=== PATIENT | male | born 1975 | race Caucasian/White ===

== ENCOUNTER 2018-07-30 17:21 | Inpatient (IN) | payer MEDICAID ==
[~2018-07-30] VITALS: Ht 170.2 cm; Wt 111.1 kg
[2018-07-30 18:06] LABS: BASOPHIL % 0.1 % (0-2); RED CELL DISTRIBUTION WIDTH 13.7 % (11.5-14.5)
[2018-07-30 18:14] LABS: CALCIUM 8.5 mg/dL (8.5-10.1); CARBON DIOXIDE 23.2 mmol/L (21-32); CHLORIDE SERUM 88 mmol/L (98-107); CREATININE SERUM 0.6 mg/dL (0.7-1.3); GFR1 > 60 mL/min; GLUCOSE SERUM 128 mg/dL (74-106); POTASSIUM SERUM 3.7 mmol/L (3.5-5.1); SODIUM SERUM 128 mmol/L (136-145)
[2018-07-30 18:20] LABS: ALBUMIN 3.9 g/dL (3.4-5.0); ALKALINE PHOSPHATASE 139 U/L (46-116); ALT/SGPT 224 U/L (16-63); AST/SGOT 283 U/L (15-37); BILIRUBIN TOTAL 4.5 mg/dL (0.20-1.00); TOTAL PROTEIN, SERUM 7.9 g/dL (6.4-8.2)
[2018-07-30 18:33] LABS: PLATELET COUNT 94 x10^3mcL (130-400)
[2018-07-30 18:49] LABS: LIPASE 3202 IU/L (73-393)
[2018-07-30 19:34] LABS: microscopic required? YES; urine erythrocyte 1+ (NEGATIVE)
[2018-07-30 19:43] LABS: AMPHETAMINE QUAL UR NONE DETECTED (See below)
[2018-07-30 19:51] LABS: T3 TOTAL 0.8 ng/mL
[2018-07-30 20:08] LABS: FREE T4 1.06 ng/dL (0.76-1.46); FREE THYROXINE INDEX 2.9 ug/dL (1.4-4.5); T4(THYROXINE) 8.2 ug/dL (4.7-13.3)
[2018-07-30 20:20] LABS: MAGNESIUM 2.4 mg/dL (1.8-2.4); PHOSPHOROUS 2.5 mg/dL (2.5-4.9)
[2018-07-30 20:21] LABS: CHOLESTEROL/HDL RATIO 2.1
[2018-07-30 20:50] VITALS: BP 154/103
[2018-07-30 20:57] VITALS: Ht 170.2 cm; Wt 111.1 kg
[2018-07-30 22:11] VITALS: BP 138/88
[2018-07-31 06:07] VITALS: BP 139/88
[2018-07-31 06:18] LABS: ALBUMIN 3.5 g/dL (3.4-5.0); ALKALINE PHOSPHATASE 121 U/L (46-116); ALT/SGPT 203 U/L (16-63); AST/SGOT 265 U/L (15-37); BILIRUBIN TOTAL 4.53 mg/dL (0.20-1.00); TOTAL PROTEIN, SERUM 6.8 g/dL (6.4-8.2)
[2018-07-31 06:20] LABS: CALCIUM 7.9 mg/dL (8.5-10.1); CARBON DIOXIDE 22.8 mmol/L (21-32); CHLORIDE SERUM 92 mmol/L (98-107); CREATININE SERUM 0.7 mg/dL (0.7-1.3); GFR1 > 60 mL/min; GLUCOSE SERUM 90 mg/dL (74-106); POTASSIUM SERUM 3.3 mmol/L (3.5-5.1); SODIUM SERUM 129 mmol/L (136-145)
[2018-07-31 06:31] LABS: BASOPHIL % 0.5 % (0-2)
[2018-07-31 06:37] LABS: LIPASE 2751 IU/L (73-393)
[2018-07-31 07:22] LABS: PLATELET COUNT 72 x10^3mcL (130-400)
[2018-07-31 07:24] VITALS: BP 147/89
[2018-07-31 10:58] VITALS: BP 150/89
[2018-07-31 20:45] VITALS: BP 149/98
[2018-08-01 05:40] VITALS: BP 149/102
[2018-08-01 06:29] LABS: BASOPHIL % 0.2 % (0-2); RED CELL DISTRIBUTION WIDTH 13.9 % (11.5-14.5)
[2018-08-01 07:04] VITALS: BP 140/87
[2018-08-01 07:17] LABS: CALCIUM 8.4 mg/dL (8.5-10.1); CARBON DIOXIDE 26.8 mmol/L (21-32); CHLORIDE SERUM 97 mmol/L (98-107); CREATININE SERUM 0.7 mg/dL (0.7-1.3); GFR1 > 60 mL/min; GLUCOSE SERUM 102 mg/dL (74-106); LIPASE 1927 IU/L (73-393); MAGNESIUM 2.2 mg/dL (1.8-2.4); PHOSPHOROUS 1.8 mg/dL (2.5-4.9); POTASSIUM SERUM 3.6 mmol/L (3.5-5.1); SODIUM SERUM 134 mmol/L (136-145)
[2018-08-01 07:36] LABS: PLATELET COUNT 57 x10^3mcL (130-400)
[2018-08-01 09:16] LABS: ALBUMIN 3.4 g/dL (3.4-5.0); BILIRUBIN DIRECT 4.34 mg/dL (0.0-0.2); BILIRUBIN TOTAL 5.81 mg/dL (0.20-1.00); TOTAL PROTEIN, SERUM 6.7 g/dL (6.4-8.2)
[2018-08-01 11:54] VITALS: BP 134/97
[2018-08-01 15:51] VITALS: BP 145/97
[2018-08-01 21:21] VITALS: BP 147/104
[2018-08-02 05:56] VITALS: BP 151/111
[2018-08-02 06:50] LABS: ALKALINE PHOSPHATASE 130 U/L (46-116); ALT/SGPT 234 U/L (16-63); AST/SGOT 308 U/L (15-37); BILIRUBIN DIRECT 4.57 mg/dL (0.0-0.2); BILIRUBIN TOTAL 5.64 mg/dL (0.20-1.00); CALCIUM 8.6 mg/dL (8.5-10.1); CARBON DIOXIDE 25.6 mmol/L (21-32); CHLORIDE SERUM 99 mmol/L (98-107); CREATININE SERUM 0.7 mg/dL (0.7-1.3); GFR1 > 60 mL/min; GLUCOSE SERUM 112 mg/dL (74-106); MAGNESIUM 2.2 mg/dL (1.8-2.4); PHOSPHOROUS 1.9 mg/dL (2.5-4.9); POTASSIUM SERUM 3.6 mmol/L (3.5-5.1); SODIUM SERUM 134 mmol/L (136-145); TOTAL PROTEIN, SERUM 6.8 g/dL (6.4-8.2)
[2018-08-02 07:01] LABS: ALBUMIN 3.3 g/dL (3.4-5.0); LIPASE 1749 IU/L (73-393)
[2018-08-02 08:21] LABS: BASOPHIL % 0.6 % (0-2); RED CELL DISTRIBUTION WIDTH 14.2 % (11.5-14.5)
[2018-08-02 08:22] LABS: PLATELET COUNT 55 x10^3mcL (130-400)
[2018-08-02 08:55] VITALS: BP 142/102
[2018-08-02 12:35] VITALS: BP 146/104
[2018-08-02 17:17] VITALS: BP 143/94
[2018-08-02 21:34] VITALS: BP 138/77
[2018-08-03 05:59] VITALS: BP 120/83
[2018-08-03 06:30] LABS: BASOPHIL % 0.3 % (0-2); RED CELL DISTRIBUTION WIDTH 14.4 % (11.5-14.5)
[2018-08-03 06:56] LABS: CALCIUM 8.4 mg/dL (8.5-10.1); CARBON DIOXIDE 26.8 mmol/L (21-32); CHLORIDE SERUM 101 mmol/L (98-107); CREATININE SERUM 0.7 mg/dL (0.7-1.3); GFR1 > 60 mL/min; GLUCOSE SERUM 93 mg/dL (74-106); POTASSIUM SERUM 3.4 mmol/L (3.5-5.1); SODIUM SERUM 135 mmol/L (136-145)
[2018-08-03 06:57] LABS: LIPASE 1613 IU/L (73-393)
[2018-08-03 08:07] LABS: PLATELET COUNT 61 x10^3mcL (130-400)
[2018-08-03 09:00] VITALS: BP 134/93
[2018-08-03 13:10] VITALS: BP 133/90
[2018-08-03 17:33] VITALS: BP 110/67
[2018-08-03 21:14] VITALS: BP 130/80
[2018-08-04 05:55] VITALS: BP 128/80
[2018-08-04 06:40] LABS: CALCIUM 8.7 mg/dL (8.5-10.1); CARBON DIOXIDE 28.1 mmol/L (21-32); CHLORIDE SERUM 104 mmol/L (98-107); CREATININE SERUM 0.9 mg/dL (0.7-1.3); GFR1 > 60 mL/min; GLUCOSE SERUM 99 mg/dL (74-106); LIPASE 1275 IU/L (73-393); POTASSIUM SERUM 4.3 mmol/L (3.5-5.1); SODIUM SERUM 139 mmol/L (136-145)
[2018-08-04 07:16] LABS: PLATELET COUNT 68 x10^3mcL (130-400); RED CELL DISTRIBUTION WIDTH 14.6 % (11.5-14.5)
[2018-08-04 09:07] LABS: BILIRUBIN DIRECT 0.09 mg/dL (0.0-0.2); BILIRUBIN TOTAL 0.34 mg/dL (0.20-1.00); TOTAL PROTEIN, SERUM 6.5 g/dL (6.4-8.2)
[2018-08-04 09:34] LABS: ATYPICAL LYMPH 5 %; BAND NEUTROPHIL 4 % (0-10); BASOPHIL 0 % (0-2); MONOCYTE 24 % (0-7); SEGMENTED NEUTROPHILS 50 % (37-75)
[2018-08-04 09:35] LABS: PLATELET MORPHOLOGY PLATELETS DECREASED; rbc morphology (normal/abnorm) ABNORMAL (NORMAL)
[2018-08-04 10:29] VITALS: BP 116/78
[2018-08-04 13:26] VITALS: BP 121/90
[2018-08-04 18:48] VITALS: BP 115/85
[2018-08-04 20:35] VITALS: BP 118/69
[2018-08-04 20:37] VITALS: BP 105/53
[2018-08-05] VITALS (7 sets, daily range): BP systolic 105–126; BP diastolic 64–82
[2018-08-05 06:55] LABS: CALCIUM 9.1 mg/dL (8.5-10.1); CHLORIDE SERUM 103 mmol/L (98-107); CREATININE SERUM 0.7 mg/dL (0.7-1.3); GFR1 > 60 mL/min; GLUCOSE SERUM 93 mg/dL (74-106); POTASSIUM SERUM 4.4 mmol/L (3.5-5.1); SODIUM SERUM 138 mmol/L (136-145)
[2018-08-05 07:09] LABS: LIPASE 1406 IU/L (73-393)
[2018-08-05 07:36] LABS: PLATELET COUNT 78 x10^3mcL (130-400)
[2018-08-05 09:50] LABS: BILIRUBIN DIRECT 3.46 mg/dL (0.0-0.2); BILIRUBIN TOTAL 4.29 mg/dL (0.20-1.00); TOTAL PROTEIN, SERUM 6.4 g/dL (6.4-8.2)
[2018-08-05 10:00] LABS: ALBUMIN 2.9 g/dL (3.4-5.0)
[2018-08-05 13:43] LABS: ATYPICAL LYMPH 2 %; BAND NEUTROPHIL 9 % (0-10); BASOPHIL 0 % (0-2); MONOCYTE 23 % (0-7); PLATELET MORPHOLOGY GIANT PLATELET SEEN; SEGMENTED NEUTROPHILS 39 % (37-75); rbc morphology (normal/abnorm) ABNORMAL (NORMAL)
[2018-08-06 06:19] VITALS: BP 113/68
[2018-08-06 06:47] LABS: PLATELET COUNT 90 x10^3mcL (130-400); RED CELL DISTRIBUTION WIDTH 15.3 % (11.5-14.5)
[2018-08-06 06:59] LABS: CALCIUM 8.7 mg/dL (8.5-10.1); CARBON DIOXIDE 27.8 mmol/L (21-32); CHLORIDE SERUM 103 mmol/L (98-107); CREATININE SERUM 0.7 mg/dL (0.7-1.3); GFR1 > 60 mL/min; GLUCOSE SERUM 99 mg/dL (74-106); POTASSIUM SERUM 3.8 mmol/L (3.5-5.1); SODIUM SERUM 138 mmol/L (136-145)
[2018-08-06 07:00] LABS: LIPASE 1033 IU/L (73-393)
[2018-08-06 09:44] VITALS: BP 122/82
[2018-08-06 14:03] LABS: BAND NEUTROPHIL 0 % (0-10); MONOCYTE 30 % (0-7); SEGMENTED NEUTROPHILS 30 % (37-75); rbc morphology (normal/abnorm) ABNORMAL (NORMAL)
[2018-08-06 14:04] LABS: PLATELET MORPHOLOGY PLATELETS DECREASED
[2018-08-06 16:06] VITALS: BP 114/82
[2018-08-06 21:51] VITALS: BP 124/79
[2018-08-07 06:05] VITALS: BP 123/83
[2018-08-07 07:13] LABS: CALCIUM 8.8 mg/dL (8.5-10.1); CARBON DIOXIDE 28.3 mmol/L (21-32); CHLORIDE SERUM 104 mmol/L (98-107); CREATININE SERUM 0.7 mg/dL (0.7-1.3); GFR1 > 60 mL/min; GLUCOSE SERUM 98 mg/dL (74-106); LIPASE 917 IU/L (73-393); POTASSIUM SERUM 4.1 mmol/L (3.5-5.1); SODIUM SERUM 139 mmol/L (136-145)
[2018-08-07 07:26] LABS: PLATELET COUNT 109 x10^3mcL (130-400); RED CELL DISTRIBUTION WIDTH 15.4 % (11.5-14.5)
[2018-08-07 07:44] VITALS: BP 109/69
[2018-08-07 09:00] VITALS: BP 106/68
[2018-08-07 13:07] LABS: ATYPICAL LYMPH 6 %; BAND NEUTROPHIL 3 % (0-10); BASOPHIL 1 % (0-2); MONOCYTE 21 % (0-7); SEGMENTED NEUTROPHILS 50 % (37-75)
[2018-08-07 13:08] LABS: rbc morphology (normal/abnorm) ABNORMAL (NORMAL)
[2018-08-07 17:00] VITALS: BP 112/72
[2018-08-07 20:38] VITALS: BP 101/58
[2018-08-08 06:08] VITALS: BP 98/63
[2018-08-08 06:53] LABS: CALCIUM 8.8 mg/dL (8.5-10.1); CARBON DIOXIDE 26.4 mmol/L (21-32); CHLORIDE SERUM 106 mmol/L (98-107); CREATININE SERUM 0.7 mg/dL (0.7-1.3); GFR1 > 60 mL/min; GLUCOSE SERUM 103 mg/dL (74-106); LIPASE 797 IU/L (73-393); POTASSIUM SERUM 3.5 mmol/L (3.5-5.1); SODIUM SERUM 139 mmol/L (136-145)
[2018-08-08 09:22] LABS: PLATELET COUNT 124 x10^3mcL (130-400); RED CELL DISTRIBUTION WIDTH 15.5 % (11.5-14.5)
[2018-08-08 09:28] VITALS: BP 91/52
[2018-08-08 09:29] LABS: ATYPICAL LYMPH 3 %; BAND NEUTROPHIL 1 % (0-10); BASOPHIL 1 % (0-2); MONOCYTE 32 % (0-7); SEGMENTED NEUTROPHILS 43 % (37-75); rbc morphology (normal/abnorm) ABNORMAL (NORMAL)
[2018-08-08 09:30] LABS: PLATELET MORPHOLOGY PLATELETS DECREASED
[2018-08-08 17:10] VITALS: BP 111/56
[2018-08-08 21:35] VITALS: BP 121/75
[2018-08-09 05:57] VITALS: BP 101/68
[2018-08-09 09:22] LABS: CALCIUM 8.4 mg/dL (8.5-10.1); CHLORIDE SERUM 105 mmol/L (98-107); CREATININE SERUM 0.8 mg/dL (0.7-1.3); GFR1 > 60 mL/min; GLUCOSE SERUM 106 mg/dL (74-106); LIPASE 690 IU/L (73-393); POTASSIUM SERUM 4.2 mmol/L (3.5-5.1); SODIUM SERUM 141 mmol/L (136-145)
[2018-08-09 09:32] VITALS: BP 106/63
[2018-08-09 16:38] VITALS: BP 107/64
[2018-08-09 21:21] VITALS: BP 115/72
[2018-08-10 06:12] VITALS: BP 108/68
[2018-08-10 06:52] LABS: PLATELET COUNT 181 x10^3mcL (130-400)
[2018-08-10 07:08] LABS: CALCIUM 8.9 mg/dL (8.5-10.1); CARBON DIOXIDE 27.7 mmol/L (21-32); CHLORIDE SERUM 105 mmol/L (98-107); CREATININE SERUM 0.8 mg/dL (0.7-1.3); GFR1 > 60 mL/min; GLUCOSE SERUM 91 mg/dL (74-106); LIPASE 554 IU/L (73-393); POTASSIUM SERUM 4.4 mmol/L (3.5-5.1); SODIUM SERUM 141 mmol/L (136-145)
[2018-08-10 09:39] VITALS: BP 99/54
[2018-08-10 10:22] LABS: ATYPICAL LYMPH 3 %; BAND NEUTROPHIL 0 % (0-10); BASOPHIL 1 % (0-2); MONOCYTE 16 % (0-7); SEGMENTED NEUTROPHILS 67 % (37-75)
[2018-08-10 10:25] LABS: PLATELET MORPHOLOGY PLATELETS DECREASED; rbc morphology (normal/abnorm) ABNORMAL (NORMAL)
[2018-08-10 21:13] VITALS: BP 112/58
[2018-08-11 06:05] VITALS: BP 129/72
[2018-08-11] MEDS ORDERED: PAN PO (09:15)
[2018-08-11 09:47] VITALS: BP 102/67
[2018-08-11] MEDS ORDERED: CHLORDIAZEPOXID25 M2 PO (10:56)
[2018-08-11 13:38] VITALS: BP 102/67
== END 2018-08-11 14:43 | disposition home or self-care (01) | DRG 282 ==
LOC: ED 17:21 → MU 19:08 → DU 19:08 → MU 08-05 17:00
PROVIDERS: Emergency Medicine; Internal Medicine; ADMIT Family Medicine
DX: K85.20 Alcohol induced acute pancreatitis without necrosis or infection (principal); N17.0 Acute kidney failure with tubular necrosis; D69.59 Other secondary thrombocytopenia; R65.10 Systemic inflammatory response syndrome (SIRS) of non-infectious origin without acute organ dysfunction; T51.0X1A Toxic effect of ethanol, accidental (unintentional), initial encounter; F10.229 Alcohol dependence with intoxication, unspecified; E87.1 Hypo-osmolality and hyponatremia; R73.03 Prediabetes; R74.0 Nonspecific elevation of levels of transaminase and lactic acid dehydrogenase [LDH]; I10 Essential (primary) hypertension; E78.5 Hyperlipidemia, unspecified; Z68.38 Body mass index [BMI] 38.0-38.9, adult; Y90.8 Blood alcohol level of 240 mg/100 ml or more; Y92.009 Unspecified place in unspecified non-institutional (private) residence as the place of occurrence of the external cause
CPT/HCPCS: 84439; 94150; G0480; J2060; J2405; J7030; J7042; Q0092

== ENCOUNTER 2018-08-29 06:21 | Emergency (ER) | payer MEDICAID ==
[~2018-08-29] VITALS: Ht 170.2 cm; Wt 112.1 kg
[~2018-08-29 06:21] MED LIST: CHLORDIAZEPOXID25 M2 PO; PAN PO
[2018-08-29 06:23] VITALS: Ht 170.2 cm; Wt 112.1 kg
[2018-08-29 06:56] LABS: BASOPHIL % 0.7 % (0-2); PLATELET COUNT 174 x10^3mcL (130-400)
[2018-08-29 07:06] LABS: RED CELL DISTRIBUTION WIDTH 16.3 % (11.5-14.5)
[2018-08-29 07:55] LABS: CALCIUM 8.5 mg/dL (8.5-10.1); CARBON DIOXIDE 24.2 mmol/L (21-32); CHLORIDE SERUM 97 mmol/L (98-107); CREATININE SERUM 0.8 mg/dL (0.7-1.3); GFR1 > 60 mL/min; GLUCOSE SERUM 144 mg/dL (74-106); POTASSIUM SERUM 4.2 mmol/L (3.5-5.1); SODIUM SERUM 135 mmol/L (136-145)
[2018-08-29 08:05] LABS: ALKALINE PHOSPHATASE 252 U/L (46-116); ALT/SGPT 121 U/L (16-63); AST/SGOT 232 U/L (15-37); BILIRUBIN TOTAL 2.4 mg/dL (0.20-1.00); LIPASE 651 IU/L (73-393)
[2018-08-29 08:06] LABS: ALBUMIN 3.3 g/dL (3.4-5.0); TOTAL PROTEIN, SERUM 8.3 g/dL (6.4-8.2)
[2018-08-29 11:46] VITALS: BP 146/85
== END 2018-08-29 11:46 | disposition home or self-care (01) ==
LOC: ED 06:21
PROVIDERS: Emergency Medicine
DX: K85.90 Acute pancreatitis without necrosis or infection, unspecified (principal); I10 Essential (primary) hypertension
CPT/HCPCS: J1885; J2270; J2405; J7030